=== PATIENT | female | born 1990 | race African-American/Black ===

== ENCOUNTER 2018-02-13 20:21 | Emergency (ER) | payer MEDICAID ==
[~2018-02-13] VITALS: Ht 165.1 cm; Wt 62.0 kg
[~2018-02-13 20:21] MED LIST: PREN-88 PO
[2018-02-13 22:04] LABS: CLARITY URINE CLOUDY (CLEAR); COLOR URINE YELLOW (YELLOW); KETONES URINE NEGATIVE (NEGATIVE); LEUKOCYTE ESTERASE URINE TRACE (NEGATIVE); NITRITE URINE NEGATIVE (NEGATIVE); OCCULT BLOOD URINE NEGATIVE (NEGATIVE); PH URINE 7.5 (4.5-8.0); PROTEIN URINE NEGATIVE (NEGATIVE); SPECIFIC GRAVITY URINE 1.031 (1.005-1.030)
[2018-02-14] MEDS ORDERED: KETOROLAC 30MG/ML VIAL IM ONE (00:30)
[2018-02-14 00:55] VITALS: BP 121/64
== END 2018-02-14 01:40 | disposition home or self-care (01) ==
LOC: ER 20:21
DX: N39.0 Urinary tract infection, site not specified (principal); F17.200 Nicotine dependence, unspecified, uncomplicated; F12.10 Cannabis abuse, uncomplicated; Z98.890 Other specified postprocedural states; Z88.0 Allergy status to penicillin
CPT/HCPCS: 72070; 72100; 81003; 81025; 96372; 99285; J1885

== ENCOUNTER 2018-04-17 01:01 | Emergency (ER) | payer MEDICAID ==
[~2018-04-17] VITALS: Ht 162.6 cm; Wt 62.6 kg
[2018-04-17] MEDS ORDERED: SODIUM CHLORIDE 0.9% 1,000 ML IV ONE (05:41)
[2018-04-17] MEDS ORDERED: ACETAMINOPHEN 500MG TABLET PO ONE (05:45)
[2018-04-17] MEDS ORDERED: ONDANSETRON HCL 4MG/2ML VIAL IV ONE (05:45)
[2018-04-17 06:30] LABS: HEMATOCRIT. 38.1 % (36.0-48.0); HEMOGLOBIN. 12.9 g/dL (12.0-16.0); MEAN CORPUSCULAR HEMOGLOBIN 29.3 pg (28.0-32.0); MEAN CORPUSCULAR VOLUME 86.8 fL (81.0-99.0); MEAN PLATELET VOLUME 8.2 fl (7.4-10.4); PLATELET 305 x1000/uL (130-400); RED BLOOD CELL COUNT 4.39 mill/uL (4.2-5.4); RED CELL DISTRIBUTION WIDTH 13.5 % (11.6-14.6)
[2018-04-17 06:35] LABS: CHLORIDE 101 mEq/L (98-107)
[2018-04-17 07:01] LABS: B-HCG QUANTITATIVE 109112 mIU/mL (<3)
[2018-04-17 07:12] LABS: PLATELET ESTIMATE NORMAL
[2018-04-17] MEDS ORDERED: METOCLOPRAMIDE HCL 10MG/2ML VIAL IV ONE (08:00)
[2018-04-17 09:03] LABS: CLARITY URINE CLEAR (CLEAR); COLOR URINE YELLOW (YELLOW); KETONES URINE 2+ (NEGATIVE); LEUKOCYTE ESTERASE URINE NEGATIVE (NEGATIVE); NITRITE URINE NEGATIVE (NEGATIVE); OCCULT BLOOD URINE 3+ (NEGATIVE); PROTEIN URINE 1+ (NEGATIVE); UROBILINOGEN URINE 0.2 E.U./dL (0.2-1.0)
[2018-04-17 10:00] VITALS: BP 108/66
== END 2018-04-17 10:30 | disposition home or self-care (01) ==
LOC: ER 01:01
DX: O20.0 Threatened abortion (principal); O23.41 Unspecified infection of urinary tract in pregnancy, first trimester; O21.0 Mild hyperemesis gravidarum; O99.331 Smoking (tobacco) complicating pregnancy, first trimester; O99.321 Drug use complicating pregnancy, first trimester; Z3A.08 8 weeks gestation of pregnancy; Z88.0 Allergy status to penicillin; Z98.890 Other specified postprocedural states; F12.90 Cannabis use, unspecified, uncomplicated
CPT/HCPCS: 36415; 76801; 76817; 80053; 81003; 84702; 85025; 96361; 96374; 96375; 99285; J2405; J2765; J7030

== ENCOUNTER 2018-05-10 18:59 | Emergency (ER) | payer MEDICAID ==
[~2018-05-10] VITALS: Ht 165.1 cm; Wt 63.0 kg
[2018-05-10] MEDS ORDERED: SODIUM CHLORIDE 0.9% 1,000 ML IV ONE ×2 (20:07→23:30)
[2018-05-10] MEDS ORDERED: METOCLOPRAMIDE HCL 10MG/2ML VIAL IV ONE (20:15)
[2018-05-10 20:46] LABS: BASOPHILS % 0.3 % (0.0-2.0); CHLORIDE 101 mEq/L (98-107); HEMATOCRIT. 36.8 % (36.0-48.0); HEMOGLOBIN. 12.2 g/dL (12.0-16.0); LYMPHOCYTES % 8.3 % (20.0-50.0); MEAN CORPUSCULAR HEMOGLOBIN 28.8 pg (28.0-32.0); MEAN CORPUSCULAR VOLUME 86.7 fL (81.0-99.0); MEAN PLATELET VOLUME 7.9 fl (7.4-10.4); NEUTROPHILS % 87.4 % (40.0-76.0); PLATELET 306 x1000/uL (130-400); RED BLOOD CELL COUNT 4.25 mill/uL (4.2-5.4); RED CELL DISTRIBUTION WIDTH 12.9 % (11.6-14.6)
[2018-05-10 21:10] LABS: B-HCG QUANTITATIVE 46840 mIU/mL (<3)
[2018-05-10] MEDS ORDERED: ONDANSETRON HCL 4MG/2ML VIAL IV ONE (23:15)
[2018-05-10 23:45] LABS: CLARITY URINE CLOUDY (CLEAR); COLOR URINE YELLOW (YELLOW); KETONES URINE 4+ (NEGATIVE); LEUKOCYTE ESTERASE URINE TRACE (NEGATIVE); NITRITE URINE NEGATIVE (NEGATIVE); OCCULT BLOOD URINE NEGATIVE (NEGATIVE); PH URINE 6.5 (4.5-8.0); PROTEIN URINE 1+ (NEGATIVE); SPECIFIC GRAVITY URINE 1.026 (1.005-1.030)
[2018-05-11 01:55] VITALS: BP 115/67
== END 2018-05-11 01:59 | disposition home or self-care (01) ==
LOC: ER 22:01
DX: O21.0 Mild hyperemesis gravidarum (principal); O20.0 Threatened abortion; O26.891 Other specified pregnancy related conditions, first trimester; F12.10 Cannabis abuse, uncomplicated; Z88.0 Allergy status to penicillin; Z98.890 Other specified postprocedural states; Z79.899 Other long term (current) drug therapy; Z3A.12 12 weeks gestation of pregnancy
CPT/HCPCS: 36415; 76801; 76817; 80053; 81003; 84702; 85025; 96361; 96374; 96375; 99285; J2405; J2765; J7030; Z7610

== ENCOUNTER 2018-06-27 03:19 | Emergency (ER) | payer MEDICAID ==
[~2018-06-27] VITALS: Ht 165.1 cm; Wt 66.0 kg
[2018-06-27] MEDS ORDERED: SODIUM CHLORIDE 0.9% 1,000 ML IV ONE (06:18)
[2018-06-27 06:51] LABS: BASOPHILS % 0.1 % (0.0-2.0); HEMATOCRIT. 31.9 % (36.0-48.0); HEMOGLOBIN. 10.6 g/dL (12.0-16.0); LYMPHOCYTES % 12.3 % (20.0-50.0); MEAN CORPUSCULAR VOLUME 87.1 fL (81.0-99.0); MEAN PLATELET VOLUME 7.8 fl (7.4-10.4); MONOCYTES % 6.6 % (2.0-8.0); PLATELET 233 x1000/uL (130-400); RED BLOOD CELL COUNT 3.66 mill/uL (4.2-5.4); RED CELL DISTRIBUTION WIDTH 13.3 % (11.6-14.6)
[2018-06-27 06:55] LABS: CHLORIDE 105 mEq/L (98-107)
[2018-06-27 07:18] LABS: B-HCG QUANTITATIVE 6947 mIU/mL (<3)
[2018-06-27 07:45] LABS: CLARITY URINE CLEAR (CLEAR); COLOR URINE YELLOW (YELLOW); KETONES URINE TRACE (NEGATIVE); LEUKOCYTE ESTERASE URINE NEGATIVE (NEGATIVE); NITRITE URINE NEGATIVE (NEGATIVE); OCCULT BLOOD URINE NEGATIVE (NEGATIVE); PROTEIN URINE 2+ (NEGATIVE); SPECIFIC GRAVITY URINE 1.036 (1.005-1.030)
[2018-06-27 08:22] LABS: *AMPHETAMINES SCREEN URINE NEGATIVE (NEGATIVE); *BARBITURATES SCREEN URINE NEGATIVE (NEGATIVE); *BENZODIAZEPINES SCREEN URINE NEGATIVE (NEGATIVE); *COCAINE SCREEN URINE NEGATIVE (NEGATIVE)
[2018-06-27 08:24] LABS: METHADONE URINE SCREEN NEGATIVE (NEGATIVE); OPIATES URINE SCREEN NEGATIVE (NEGATIVE)
[2018-06-27 08:35] LABS: PHENCYCLIDINE URINE SCREEN NEGATIVE (NEGATIVE)
[2018-06-27 08:42] LABS: CANNABINOID URINE SCREEN PRESUMTIVE POSITIVE (NEGATIVE)
[2018-06-27] MEDS ORDERED: POTASSIUM CHLORIDE 20MEQ TABLET SR PO ONE (08:45)
[2018-06-27 09:25] VITALS: BP 123/71
== END 2018-06-27 09:30 | disposition home or self-care (01) ==
LOC: ER 03:19
DX: O23.32 Infections of other parts of urinary tract in pregnancy, second trimester (principal); O44.02 Complete placenta previa NOS or without hemorrhage, second trimester; O21.1 Hyperemesis gravidarum with metabolic disturbance; F17.200 Nicotine dependence, unspecified, uncomplicated; Z3A.18 18 weeks gestation of pregnancy; Z98.890 Other specified postprocedural states; Z88.0 Allergy status to penicillin
CPT/HCPCS: 36415; 76805; 80053; 80305; 81003; 81025; 84702; 85025; 86850; 86870; 86900; 86901; 99285; J7030; Z7610

== ENCOUNTER 2018-08-06 13:47 | Observation (INO) | payer MEDICAID ==
[~2018-08-06] VITALS: Ht 165.1 cm; Wt 68.0 kg
== END 2018-08-06 15:30 | disposition home or self-care (01) ==
LOC: 8WST 13:47 → L&D 14:23
PROVIDERS: ADMIT Specialist; ATTEND Specialist
DX: O26.892 Other specified pregnancy related conditions, second trimester (principal); R10.9 Unspecified abdominal pain; Z3A.24 24 weeks gestation of pregnancy
CPT/HCPCS: 99281; G0378

== ENCOUNTER 2018-12-12 00:37 | Emergency (ER) | payer MEDICAID ==
[~2018-12-12] VITALS: Ht 167.6 cm; Wt 63.0 kg
[2018-12-12] MEDS ORDERED: SODIUM CHLORIDE 0.9% 1,000 ML IV ONE (02:51)
[2018-12-12 11:32] VITALS: BP 123/83
== END 2018-12-12 11:28 | disposition home or self-care (01) ==
LOC: ER 00:52
DX: F10.10 Alcohol abuse, uncomplicated (principal); R40.4 Transient alteration of awareness; Z98.890 Other specified postprocedural states; Z88.0 Allergy status to penicillin; Z79.899 Other long term (current) drug therapy
CPT/HCPCS: 70450; 81025; 99284; J7030